=== PATIENT | female | born 1955 ===

== ENCOUNTER 2017-10-01 21:31 | Emergency (ER) | payer BC ==
[2017-10-01 22:01] VITALS: BP 128/76
[2017-10-01] MEDS ORDERED: Lidocaine 2% PF * 5 ML VIAL INJ ONE (23:00)
[2017-10-01] MEDS ORDERED: Cephalexin CAP* 500 MG PO ONE (23:01)
--- NOTE | 2017-10-01 23:01 | UC ---
Skin Complaint HPI - HPI Summary HPI Summary: Patient presents with about 11 days of pain, redness and swelling distal left thumb. Saw a efficiency miner blasting in [place] where she lives and was given steroid ointment which she says has had no effect. Patient is here in [place] visiting her daughter and several days ago saw a local efficiency miner blasting who advised vinegar soaks. Patient states that pain and redness are worsening and now she has an area of discoloration along the side of her nailbed. Is here for another opinion. No fever. Does not bite her nails but did cut her thumb nail short at onset of symptoms. - History of Current Complaint Chief Complaint: UCUpperExtremity Time Seen by Provider: 10/01/17 22:35 Stated Complaint: THUMB COMPLAINT Hx Obtained From: Patient Onset/Duration: Gradual Onset, Lasting Days, Still Present Timing: Constant Onset Severity: Moderate Current Severity: Moderate Pain Intensity: 8 Pain Scale Used: 0-10 Numeric Location: Hand (Left) - LEFT THUMB Character: Swelling, Pain, Redness Aggravating Factor(s): Touch Alleviating Factor(s): Nothing Associated Signs & Symptoms: Positive: Tenderness. Negative: Fever - Allergy/Home Medications Allergies/Adverse Reactions: Allergies Allergy/AdvReac Type Severity Reaction Status Date / Time Sulfa (Sulfonamide Allergy Swelling Verified 10/01/17 21:51 Antibiotics) Of Face,Lips,& Throat erythromycin base AdvReac Abdominal Verified 10/01/17 22:21 Pain Home Medications: Home Medications Ibuprofen TAB* [Motrin TAB* 400 MG] 400 mg PO Q6H PRN 10/01/17 [History Confirmed 10/01/17] Review of Systems Constitutional: Negative Skin: Other - REDNESS, SWELLING LEFT THUMB WITH DISCOLORATION LATERAL NAILBED Respiratory: Negative Cardiovascular: Negative Gastrointestinal: Negative All Other Systems Reviewed And Are Negative: Yes PMH/Surg Hx/FS Hx/Imm Hx Previously Healthy: Yes - Surgical History Surgical History: None - Family History Known Family History: Positive: Hypertension - Social History Alcohol Use: Daily Alcohol Amount: 1 drink/ day Substance Use Type: None Smoking Status (MU): Never Smoked Tobacco Physical Exam Triage Information Reviewed: Yes Appearance: Well-Appearing, No Pain Distress, Well-Nourished Vital Signs: Initial Vital Signs Temp 99.1 F 10/01/17 21:52 Pulse 78 10/01/17 21:52 Resp 18 04/21/18 21:52 BP 128/76 10/01/17 21:52 Pulse Ox 97 10/01/17 21:52 Vital Signs Reviewed: Yes Eyes: Positive: Conjunctiva Clear ENT: Positive: Hearing grossly normal Neck: Positive: Supple Respiratory: Positive: No respiratory distress, No accessory muscle use Cardiovascular: Positive: Pulses Normal Abdomen Description: Positive: Soft Musculoskeletal: Positive: Edema @ - LEFT THUMB TENDER AND SWOLLEN DISTALLY Neurological: Positive: Alert Psychological: Positive: Age Appropriate Behavior Skin: Positive: Other - LEFT THUMB SWOLLEN AND ERYTHEMATOUS DISTALLY WITH PUS POCKET EVIDENT AT LATERAL NAIL BED Course/Dx - Course Course Of Treatment: Left thumb digital block with 2% lidocaine. Paronychia opened with a 15 blade. Pus expressed. Specimen sent for culture. Keflex twice a day for 7 days. Hot soaks. Follow-up here if not improving as expected. - Diagnoses Provider Diagnoses: PARONYCHIA LEFT THUMB Procedures - Incision and Drainage Site: LEFT THUMB Anesthesia: Digital - 2% LIDOCAINE Instrument(s): Scalpel Discharge - Sign-Out/Discharge Documenting (check all that apply): Discharge - Discharge Plan Condition: Stable Disposition: HOME Prescriptions: Cephalexin CAP* [Keflex 500 CAP*] 1,000 mg PO BID #28 cap Patient Education Materials: Paronychia (ED) Referrals: Non Staff,Doctor [Primary Care Provider] - Additional Instructions: TAKE ANTIBIOTICS FOR FULL 7 DAYS. OTC MEDS NEEDED FOR DISCOMFORT. WARM/HOT SOAKS AT LEAST 4 TIMES DAILY SPECIMEN SENT FOR CULTURE SEEK FOLLOW-UP HERE IF NOT IMPROVING EXPECTED. - Billing Disposition and Condition Condition: STABLE Disposition: HOME
--- NOTE | 2017-10-04 15:50 | UC ---
- Progress Note Progress Note: Wound culture results with Strep intermedius and staph lugdenensis. She was placed on keflex, which should cover, but full sensitivities are still preliminary. Discharge - Sign-Out/Discharge Documenting (check all that apply): Post-Discharge Follow Up - Discharge Plan Condition: Stable Disposition: HOME Prescriptions: Cephalexin CAP* [Keflex 500 CAP*] 1,000 mg PO BID #28 cap Patient Education Materials: Paronychia (ED) Referrals: Non Staff,Doctor [Primary Care Provider] - Additional Instructions: TAKE ANTIBIOTICS FOR FULL 7 DAYS. OTC MEDS NEEDED FOR DISCOMFORT. WARM/HOT SOAKS AT LEAST 4 TIMES DAILY SPECIMEN SENT FOR CULTURE SEEK FOLLOW-UP HERE IF NOT IMPROVING EXPECTED. - Billing Disposition and Condition Condition: STABLE Disposition: HOME
== END 2017-10-01 23:56 | disposition home or self-care (01) ==
LOC: UCEAST 21:31
DX: L03.012 Cellulitis of left finger (principal); Z88.1 Allergy status to other antibiotic agents; Z88.2 Allergy status to sulfonamides
CPT/HCPCS: 10060; 87070; 87077; 87186; 87205; 87640; 87641; 99202; A9270-GY; G0463